=== PATIENT | female | born 1985 | race Caucasian/White ===

== ENCOUNTER → 2017-03-18 | Day surgery (SDC) | payer BC ==
[2017-03-11 10:02] VITALS: Ht 160 cm; Wt 86.4 kg
[~2017-03-18] VITALS: Ht 160 cm; Wt 86.4 kg
[~2017-03-18] MED LIST: ALBU18002 INH; CETI10TA84 PO; LIDOCAINE HCL 2% 2 ML VIAL (20MG/ML) ONE; PROPOFOL IV EMULSION 10 MG/ML 20 ML VIAL IV ONE
--- NOTE | 2017-03-18 14:47 | Endo History and Physical ---
History & Physical Date of Service: Mar 18, 2017. Chief Complaint: Hoarseness Referring Physician: YASH Hall History of Present Illness 32 yo CF who presents for EGD secondary to hoarseness. Past Surgical History Hx Cardiac Surgery: No Hx Internal Defibrillator: No Hx Pacemaker: No Hx Abdominal Surgery: No Hx of Implantable Prosthesis: No Hx Post-Op Nausea and Vomiting: No Hx Cancer Surgery: No Hx Thoracic Surgery: No Hx Orthopedic: No Hx Urinary Tract Surgery: No Family History Colon CA Social History Smoking Status: Never Smoker Hx Substance Use: No Hx Alcohol Use: No Allergies Coded Allergies: Animal Dander (Verified Allergy, Unknown, ALLERGIES, 03/11/17) NO KNOWN DRUG ALLERGIES (Verified Allergy, Unknown, ., 03/11/17) Lactose Intolerance (Verified Adverse Reaction, Unknown, GI SYMPTOMS, ) Current Medications Reported Home Medications Medications Dose Route/Sig Max Daily Dose Days Date Category Proair Respiclick (Albuterol Sulfate) 108 Mcg/Act Aer 2 Puffs INH Q4 PRN 03/11/17 Reported Zyrtec (Cetirizine HCl) 10 Mg Tab 10 Mg PO HS 04/19/12 Reported Vital Signs Weight (Kilograms): 86.36 Height (Feet): 5 Height (Inches): 3 Physical Exam General Appearance: WD/WN, no apparent distress Respiratory/Chest: Auscultation: breath sounds normal Cardiovascular: Heart Auscultation: RRR Abdomen: Bowel Sounds: normal Inspection & Palpation: soft, non-distended, no tenderness, guarding & rebound Assessment and Plan Assessment: 32 yo CF who presents for EGD secondary to hoarseness. Plan: Proceed with EGD.
--- NOTE | 2017-03-18 16:05 | Discharge Instructions ---
Endoscopy Patient Instructions Date / Procedure(s) Performed Mar 18, 2017. EGD Allergy Information Coded Allergies: Animal Dander (Verified Allergy, Unknown, ALLERGIES, 03/11/17) NO KNOWN DRUG ALLERGIES (Verified Allergy, Unknown, ., 03/11/17) Lactose Intolerance (Verified Adverse Reaction, Unknown, GI SYMPTOMS, ) Discharge Date / Findings Mar 18, 2017. Hiatal hernia Medication Instructions 1) Start Omeprazole 20mg by mouth each morning 1/2 hour prior to breakfast. 2) OK to resume all medications today as prescribed Reported Home Medications Medications Dose Route/Sig Max Daily Dose Days Date Category Proair Respiclick (Albuterol Sulfate) 108 Mcg/Act Aer 2 Puffs INH Q4 PRN 03/11/17 Reported Zyrtec (Cetirizine HCl) 10 Mg Tab 10 Mg PO HS 04/19/12 Reported Provider Instructions Activity Restrictions - No exercising or heavy lifting for 24 hours. - Do not drink alcohol the day of the procedure. - Do not drive a car or operate machinery until the day after the procedure. - Do not make any important decisions or sign important papers in 24 hours after the procedure. Following Day: - Return to full activity which may include returning to work/school. Diet Start your diet with liquids and light foods (jello, soup, juice, toast). Then eat your usual diet if not nauseated. Treatment For Common After Affects For mild abdominal pain, bloating, or excessive gas: - Rest - Eat lightly - Lie on right side Follow-Up Information Follow-up with Rani Felix as scheduled Anesthesia Information What You Should Know You have had a procedure that required some medicine to reduce anxiety and discomfort. This treatment is called moderate sedation. After receiving the treatment, you may be sleepy, but you will be able to breathe on your own. The effects of the treatment may last for several hours. Follow these instructions along with Activity/Diet recommendations noted above: * Do NOT do anything where dizziness or clumsiness would be dangerous. * Rest quietly at home today, then you can be up and about tomorrow. * Have a responsible person stay with you the rest of today. * You may have had an I.V. today. If so, you may take the dressing off later today. Recommendations Call your doctor if: * Trouble breathing * Continuous vomiting for more than 24 hours * Temperature above 101 degrees * Severe abdominal pain or bloating * Pain not relieved by pain medicine ordered * There is increased drainage or redness from any incision * A large amount of rectal bleeding greater than 2-3 tablespoons. (If you had a polyp/s removed or have hemorrhoids, a small amount of blood - from the rectum is to be expected.) * You have any unanswered questions or concerns. IN THE EVENT OF A SERIOUS EMERGENCY, GO TO THE NEAREST EMERGENCY ROOM Your discharge instructions were prepared by provider Jagdish Chowdhury. Patient Instructions Signature Page Sybil Ny Patient (or Guardian) Signature/Date: I have read and understand the instructions given to me by my caregivers. Caregiver/RN/Doctor Signature/Date: The above-named patient and/or guardian has received patient instructions on this date. + Original Patient Signature Page (only) stays with chart. Please make copy for patient.
--- NOTE | 2017-03-18 16:10 | GI REPORT ---
Procedure Date: 03/18/2017 3:24 PM Procedure: Upper GI endoscopy Indications: Hoarseness Medicines: Monitored Anesthesia Care Complications: No immediate complications. Estimated Blood Loss: Estimated blood loss: none. Procedure: Pre-Anesthesia Assessment: - Prior to the procedure, a History and Physical was performed, and patient medications and allergies were reviewed. The patient's tolerance of previous anesthesia was also reviewed. The risks and benefits of the procedure and the sedation options and risks were discussed with the patient. All questions were answered, and informed consent was obtained. Prior Anticoagulants: The patient has taken no previous anticoagulant or antiplatelet agents. ASA Grade Assessment: II - A patient with mild systemic disease. After reviewing the risks and benefits, the patient was deemed in satisfactory condition to undergo the procedure. After obtaining informed consent, the endoscope was passed under direct vision. Throughout the procedure, the patient's blood pressure, pulse, and oxygen saturations were monitored continuously. The scope was introduced through the mouth, and advanced to the second part of duodenum. The upper GI endoscopy was accomplished without difficulty. The patient tolerated the procedure well. Findings: The esophagus was normal. A small hiatus hernia was present. The examined duodenum was normal. Impression: - Normal esophagus. - Small hiatus hernia. - Normal examined duodenum. - No specimens collected. Recommendation: - Resume previous diet. - Continue present medications. - Return to GI office as previously scheduled. Jagdish Chowdhury DO 03/18/2017 4:10:20 PM This report has been signed electronically. Note Initiated On: 03/18/2017 3:24 PM I attest to the content of the Intraoperative Record and orders documented therein, exceptions below
[2017-03-18 16:38] VITALS: BP 114/97; PULSE 86; O2SAT 98
--- NOTE | 2017-03-18 16:45 | Anesthesiology Progress Note ---
Anesthesia Post Op Note Date & Time Mar 18, 2017 at 16:45 Vital Signs Pain Intensity: 0 Vital Signs Past 12 Hours Date Time Temp Pulse Resp B/P (MAP) Pulse Ox O2 Delivery O2 Flow Rate FiO2 03/18/17 16:38 86 20 114/97 (103) 98 Room Air 03/18/17 16:23 92 20 130/94 (106) 98 Room Air 03/18/17 16:08 92 20 117/83 (94) 95 Room Air 03/18/17 14:51 36.8 80 20 125/89 (101) 97 Room Air Notes Mental Status: alert / awake / arousable, participated in evaluation Pt Amnestic to Procedure: Yes Nausea / Vomiting: adequately controlled Pain: adequately controlled Airway Patency, RR, SpO2: stable & adequate BP & HR: stable & adequate Hydration State: stable & adequate Anesthetic Complications: no major complications apparent
== END | disposition home or self-care (01) ==
LOC: C.GI 14:21
PROVIDERS: ATTEND Internal Medicine
DX: R49.0 Dysphonia (principal); K44.9 Diaphragmatic hernia without obstruction or gangrene; Z80.0 Family history of malignant neoplasm of digestive organs; Z79.899 Other long term (current) drug therapy

== ENCOUNTER → 2017-04-09 | Day surgery (SDC) | payer BC ==
[2017-03-11 10:08] VITALS: Ht 160 cm; Wt 86.4 kg
[~2017-04-09] VITALS: Ht 160 cm; Wt 86.4 kg
[~2017-04-09] MED LIST changes: -LIDOCAINE HCL 2% 2 ML VIAL (20MG/ML) ONE; +SODIUM CHLORIDE 0.9% 500ML 500 ML IV ONE
--- NOTE | 2017-04-09 11:16 | Endo History and Physical ---
History & Physical Date of Service: Apr 09, 2017. Chief Complaint: Diarrhea Referring Physician: Komal Felix NP History of Present Illness 32 yo CF who presents for colonoscopy secondary to diarrhea. Past Surgical History Hx Cardiac Surgery: No Hx Internal Defibrillator: No Hx Pacemaker: No Hx Abdominal Surgery: No Hx Post-Op Nausea and Vomiting: No Hx Cancer Surgery: No Hx Thoracic Surgery: No Hx Orthopedic: No Hx Urinary Tract Surgery: No Family History Colon CA Social History Smoking Status: Never Smoker Hx Substance Use: No Hx Alcohol Use: No Allergies Coded Allergies: Animal Dander (Verified Allergy, Unknown, ALLERGIES, 04/09/17) NO KNOWN DRUG ALLERGIES (Verified Allergy, Unknown, ., 04/09/17) Lactose Intolerance (Verified Adverse Reaction, Unknown, GI SYMPTOMS, ) Current Medications Reported Home Medications Medications Dose Route/Sig Max Daily Dose Days Date Category Proair Respiclick (Albuterol Sulfate) 108 Mcg/Act Aer 2 Puffs INH Q4 PRN 03/11/17 Reported Zyrtec (Cetirizine HCl) 10 Mg Tab 10 Mg PO HS 04/19/12 Reported Vital Signs Weight (Kilograms): 86.36 Height (Feet): 5 Height (Inches): 3 Date Time Temp Pulse Resp B/P (MAP) Pulse Ox O2 Delivery O2 Flow Rate FiO2 04/09/17 10:55 36.7 73 26 116/78 (91) 96 Room Air Physical Exam General Appearance: WD/WN, no apparent distress Respiratory/Chest: Auscultation: breath sounds normal Cardiovascular: Heart Auscultation: RRR Abdomen: Bowel Sounds: normal Inspection & Palpation: soft, non-distended, no tenderness, guarding & rebound Assessment and Plan Assessment: 32 yo CF who presents for colonoscopy secondary to diarrhea. Plan: Proceed with colonoscopy.
--- NOTE | 2017-04-09 11:50 | Discharge Instructions ---
Endoscopy Patient Instructions Date / Procedure(s) Performed Apr 09, 2017. Colonoscopy Allergy Information Coded Allergies: Animal Dander (Verified Allergy, Unknown, ALLERGIES, 04/09/17) NO KNOWN DRUG ALLERGIES (Verified Allergy, Unknown, ., 04/09/17) Lactose Intolerance (Verified Adverse Reaction, Unknown, GI SYMPTOMS, ) Discharge Date / Findings Apr 09, 2017. Internal hemorrhoids Random colon biopsies Stool aspirate collected Medication Instructions OK to resume all medications today as prescribed Reported Home Medications Medications Dose Route/Sig Max Daily Dose Days Date Category Proair Respiclick (Albuterol Sulfate) 108 Mcg/Act Aer 2 Puffs INH Q4 PRN 03/11/17 Reported Zyrtec (Cetirizine HCl) 10 Mg Tab 10 Mg PO HS 04/19/12 Reported Provider Instructions Activity Restrictions - No exercising or heavy lifting for 24 hours. - Do not drink alcohol the day of the procedure. - Do not drive a car or operate machinery until the day after the procedure. - Do not make any important decisions or sign important papers in 24 hours after the procedure. Following Day: - Return to full activity which may include returning to work/school. Diet Start your diet with liquids and light foods (jello, soup, juice, toast). Then eat your usual diet if not nauseated. Treatment For Common After Affects For mild abdominal pain, bloating, or excessive gas: - Rest - Eat lightly - Lie on right side Follow-Up Information Follow-up with Komal Felix [employer] TECHNICIAN as scheduled Anesthesia Information What You Should Know You have had a procedure that required some medicine to reduce anxiety and discomfort. This treatment is called moderate sedation. After receiving the treatment, you may be sleepy, but you will be able to breathe on your own. The effects of the treatment may last for several hours. Follow these instructions along with Activity/Diet recommendations noted above: * Do NOT do anything where dizziness or clumsiness would be dangerous. * Rest quietly at home today, then you can be up and about tomorrow. * Have a responsible person stay with you the rest of today. * You may have had an I.V. today. If so, you may take the dressing off later today. Recommendations Call your doctor if: * Trouble breathing * Continuous vomiting for more than 24 hours * Temperature above 101 degrees * Severe abdominal pain or bloating * Pain not relieved by pain medicine ordered * There is increased drainage or redness from any incision * A large amount of rectal bleeding greater than 2-3 tablespoons. (If you had a polyp/s removed or have hemorrhoids, a small amount of blood - from the rectum is to be expected.) * You have any unanswered questions or concerns. IN THE EVENT OF A SERIOUS EMERGENCY, GO TO THE NEAREST EMERGENCY ROOM Your discharge instructions were prepared by provider Jagdish Chowdhury. Patient Instructions Signature Page Sybil Ny Patient (or Guardian) Signature/Date: I have read and understand the instructions given to me by my caregivers. Caregiver/RN/Doctor Signature/Date: The above-named patient and/or guardian has received patient instructions on this date. + Original Patient Signature Page (only) stays with chart. Please make copy for patient.
--- NOTE | 2017-04-09 11:53 | GI REPORT ---
Procedure Date: 04/09/2017 11:03 AM Procedure: Colonoscopy Indications: Chronic diarrhea Medicines: Monitored Anesthesia Care Complications: No immediate complications. Estimated Blood Loss: Estimated blood loss: none. Procedure: Pre-Anesthesia Assessment: - Prior to the procedure, a History and Physical was performed, and patient medications and allergies were reviewed. The patient's tolerance of previous anesthesia was also reviewed. The risks and benefits of the procedure and the sedation options and risks were discussed with the patient. All questions were answered, and informed consent was obtained. Prior Anticoagulants: The patient has taken no previous anticoagulant or antiplatelet agents. ASA Grade Assessment: II - A patient with mild systemic disease. After reviewing the risks and benefits, the patient was deemed in satisfactory condition to undergo the procedure. After I obtained informed consent, the scope was passed under direct vision. Throughout the procedure, the patient's blood pressure, pulse, and oxygen saturations were monitored continuously. The On-site loaner was introduced through the anus and advanced to the terminal ileum. The colonoscopy was performed without difficulty. The patient tolerated the procedure well. The quality of the bowel preparation was good. The terminal ileum, ileocecal valve, appendiceal orifice, and rectum were photographed. Findings: The colon (entire examined portion) appeared normal. Several random biopsies were obtained with cold forceps for histology in the entire colon. Fluid aspiration for cytology was performed. Non-bleeding internal hemorrhoids were found during retroflexion. The hemorrhoids were small. Impression: - The entire examined colon is normal. Fluid aspiration performed. - Non-bleeding internal hemorrhoids. - Several random biopsies were obtained in the entire colon. Recommendation: - Resume previous diet. - Continue present medications. - Repeat colonoscopy for surveillance based on pathology results. - Return to primary care physician as previously scheduled. Jagdish Chowdhury DO 04/09/2017 11:52:51 AM This report has been signed electronically. Note Initiated On: 04/09/2017 11:03 AM I attest to the content of the Intraoperative Record and orders documented therein, exceptions below
[2017-04-09 12:07] VITALS: BP 123/96; PULSE 79; O2SAT 99
--- NOTE | 2017-04-09 13:10 | Anesthesiology Progress Note ---
Anesthesia Post Op Note Date & Time Apr 09, 2017 at 13:09 Vital Signs Pain Intensity: 0 Vital Signs Past 12 Hours Date Time Temp Pulse Resp B/P (MAP) Pulse Ox O2 Delivery O2 Flow Rate FiO2 04/09/17 12:07 79 16 123/96 (105) 99 Room Air 04/09/17 11:52 83 16 127/93 (104) 99 Room Air 04/09/17 11:37 97 16 115/86 (96) 98 Room Air 04/09/17 10:55 36.7 73 26 116/78 (91) 96 Room Air Notes Mental Status: alert / awake / arousable, participated in evaluation Pt Amnestic to Procedure: Yes Nausea / Vomiting: adequately controlled Pain: adequately controlled Airway Patency, RR, SpO2: stable & adequate BP & HR: stable & adequate Hydration State: stable & adequate Anesthetic Complications: no major complications apparent
== END | disposition home or self-care (01) ==
LOC: C.GI 10:27
PROVIDERS: ATTEND Internal Medicine
DX: K52.9 Noninfective gastroenteritis and colitis, unspecified (principal); K64.8 Other hemorrhoids; Z80.0 Family history of malignant neoplasm of digestive organs; Z79.899 Other long term (current) drug therapy

== ENCOUNTER → 2017-04-26 | Outpatient (CLI) | payer BC ==
[~2017-04-26] MED LIST changes: -PROPOFOL IV EMULSION 10 MG/ML 20 ML VIAL IV ONE; -SODIUM CHLORIDE 0.9% 500ML 500 ML IV ONE
[2017-04-26 16:04] LABS: BASO % 0.6 %; BASO ABS # 0.04 K/uL (0-0.2); COMPLETE YES; EOS % 0.7 %; HEMATOCRIT 43.8 % (37-47); IG% 0.3 %; LYMPH % 35.1 %; LYMPH ABS # 2.42 K/uL (1.2-3.4); MEAN CELL VOLUME 92.4 fL (80-100); MEAN CORPUSCULAR HEMOGLOBIN 32.1 pg (25-34); MEAN CORPUSCULAR HGB CONC 34.7 g/dl (32-36); MEAN PLATELET VOLUME 10.9 fL (7.4-10.4); MONO % 7.5 %; NEUT % 55.8 %; PLATELET COUNT 291 K/uL (130-400); RED BLOOD COUNT 4.74 M/uL (4.2-5.4); WHITE BLOOD COUNT 6.89 K/uL (4.8-10.8)
[2017-04-26 16:11] LABS: ALT/SGPT 44 U/L (12-78); AST/SGOT 18 U/L (15-37); BLOOD UREA NITROGEN 14 mg/dl (7-18); BUN/CREATININE RATIO 18.3 (10-20); CALCIUM 9.4 mg/dl (8.5-10.1); CARBON DIOXIDE 27 mmol/L (21-32); CHLORIDE 105 mmol/L (98-107); CREATININE 0.77 mg/dl (0.60-1.20); GLUCOSE 102 mg/dl (70-99); POTASSIUM 3.8 mmol/L (3.5-5.1); SODIUM 139 mmol/L (136-145)
[2017-04-26 16:22] LABS: ALB/GLOB RATIO 1.2 (0.9-2); ALKALINE PHOSPHATASE 89 U/L (45-117); C-REACTIVE PROTEIN < 0.29 mg/dl (0-0.29)
[2017-04-30 02:36] LABS: IGA SERUM 211 mg/dL (81-463); TIS TRANS IGA 1 U/mL (<4)
== END | disposition home or self-care (01) ==
LOC: C.LAB1850 14:59
PROVIDERS: ATTEND Nurse Practitioner Adult Health
DX: K52.9 Noninfective gastroenteritis and colitis, unspecified (principal); E01.0 Iodine-deficiency related diffuse (endemic) goiter

== ENCOUNTER → 2017-05-06 | Outpatient (CLI) | payer BC | END | disposition home or self-care (01) | LOC: C.PAPS 13:55 | PROVIDERS: ATTEND Physician Assistant | DX: Z01.419 Encounter for gynecological examination (general) (routine) without abnormal findings (principal) ==

== ENCOUNTER → 2017-06-22 | Outpatient (CLI) | payer BC ==
--- NOTE | 2017-06-22 19:16 | DIAGNOSTIC IMAGING REPORT ---
R LOWER EXT JOINT WITHOUT CLINICAL HISTORY: 32 years-old Female presenting with BILATERAL ANKLE, POSTERIOR TIBIAL TENDONITIS. TECHNIQUE: Multisequence, multiplanar MR imaging of the right and ankle was performed without the use of intravenous contrast. IV contrast: None. COMPARISON: None. FINDINGS: Localizer images: Unremarkable. No bony marrow edema. Subcutaneous edema noted along the medial distal tibia and inferior to the medial malleolus and to a lesser extent along the posterior lateral distal lower leg. Anterior tendons including the tibialis anterior, extensor hallucis longus, and extensor digitorum longus intact. Posterior tendons demonstrate minimal fluid along the tibialis posterior with normal signal intensity of the tendon. Edema noted both superficial and deep to the flexor retinaculum. Flexor digitorum longus and flexor hallucis longus intact. Peroneal longus and brevis intact, although minimal superficial subcutaneous edema tracks along the posterior lateral aspect of the tendon complex in the distal lower leg. Anterior and posterior tibiofibular ligaments intact. Anterior and posterior talofibular ligaments intact. Deltoid ligament intact. Normal bulk and signal intensity of the muscles. IMPRESSION: 1. Edema superficial and deep to the flexor retinaculum with minimal fluid tracking along the tibialis posterior. Mild posterior tibial tendinitis. 2. Mild subcutaneous edema tracks along the peroneal is tendon complex proximal to the ankle mortise. Electronically signed by: Sonny Bull M.D. 06/22/2017 7:15 PM Dictated Date/Time: 06/22/2017 7:02 PM
--- NOTE | 2017-06-22 20:03 | DIAGNOSTIC IMAGING REPORT ---
L LOWER EXT JOINT WITHOUT CLINICAL HISTORY: 32 years-old Female presenting with BILATERAL ANKLE, POSTERIOR TIBIAL TENDONITIS. TECHNIQUE: Multisequence, multiplanar MR imaging of the left ankle was performed without the use of intravenous contrast. IV contrast: None. COMPARISON: None. FINDINGS: Localizer images: Unremarkable. No bony edema. Subcutaneous edema noted along the posterior lateral lower leg to the level of the ankle mortise. Subcutaneous edema also noted professional to the posterior ankle tendons primarily in the lower leg extending minimally beyond the ankle mortise. Anterior tendons including the tibialis anterior, extensor hallucis longus, and extensor digitorum longus intact. Minimal superficial edema noted along the proximal course. Posterior tendons demonstrate minimal fluid tracking along the tibialis posterior at the level of the overlying subcutaneous edema. Edema noted superficial and deep to the flexor retinaculum, which appears intact. Remaining posterior tendons including the flexor digitorum longus and flexor hallucis longus intact. Peroneal longus and brevis intact, although subcutaneous edema noted superficial to these tendons in the distal lower leg. Anterior and posterior tibiofibular ligaments intact. Anterior and posterior talofibular ligaments intact. Deltoid ligament intact. Achilles tendon normal. Medial and lateral bands of the plantar fascia normal. Normal muscle bulk and signal intensity. IMPRESSION: 1. Edema noted superficial and deep to the flexor retinaculum primarily centered in the subcutaneous tissue, although minimal fluid tracks along the tibialis posterior. This is identical to the appearance in the right ankle and could suggest mild tendinitis of the tibialis posterior. 2. Nonspecific mild edema superficial to the peroneal complex proximal to the ankle mortise. Electronically signed by: Sonny Bull M.D. 06/22/2017 8:01 PM Dictated Date/Time: 06/22/2017 7:54 PM
== END | disposition home or self-care (01) ==
LOC: C.MRI 16:57
PROVIDERS: ATTEND Podiatrist
DX: M76.822 Posterior tibial tendinitis, left leg (principal); G57.52 Tarsal tunnel syndrome, left lower limb; M76.821 Posterior tibial tendinitis, right leg; G57.51 Tarsal tunnel syndrome, right lower limb

== ENCOUNTER → 2017-08-30 | Outpatient (CLI) | payer OTHER ==
--- NOTE | 2017-08-30 15:07 | DIAGNOSTIC IMAGING REPORT ---
FUSION CT SINUSES W/O HISTORY: 32 years-old Female J32.9 Chronic sinusitis acute facial pain and pressure COMPARISON: None available TECHNIQUE: Multiple axial CT images of the paranasal sinuses were obtained without the use of IV contrast. RuffWire images also submitted. A dose lowering technique was used consistent with the principals of [place]ERSON. FINDINGS: The mastoid air cells and middle ear cavities are clear. The right maxillary sinus is clear. Area of polypoid mucosal thickening involving the anterior wall of the inferior left maxillary antrum measures up to 1.1 cm. Sphenoid sinuses are clear. Right ethmoid air cells are generally clear. There is moderate mucosal thickening involving anterior left ethmoid air cells. The right frontal sinus is clear. There is moderate mucoperiosteal thickening of the left frontal sinus. The right ostiomeatal unit is patent with only minimal mucosal thickening present. There is moderate to severe mucosal thickening with partial opacification of the left maxillary ostiomeatal unit with adjacent small left-sided Steve cell nicely seen on image 27 series 300. The right frontoethmoidal recess is patent. There is opacification and occlusion of the left frontoethmoidal recess. The bilateral sphenoethmoidal recesses are patent with minimal mucosal thickening seen on the left. Xena cheikh appears normal. The nasal septum is mildly deviated to the left with leftward spurring. No facial bone fracture or dislocation. Imaged cervical spine appears unremarkable. Soft tissues are within normal limits. No pathologic adenopathy identified. The imaged intracranial structures demonstrate no acute abnormality. IMPRESSION: 1. Paranasal sinus disease as above includes occlusion of the left frontoethmoidal recess along with partial occlusion of the left maxillary ostiomeatal unit which is narrowed by a left-sided Steve cell. 2. Mild leftward bowing and spurring of the nasal septum. The above report was generated using voice recognition software. It may contain grammatical, syntax or spelling errors. Electronically signed by: Darvin Salinas M.D. 08/30/2017 3:06 PM Dictated Date/Time: 08/30/2017 2:59 PM
== END | disposition home or self-care (01) ==
LOC: C.CTS 14:40
DX: J32.9 Chronic sinusitis, unspecified (principal)

== ENCOUNTER → 2018-03-17 | Outpatient (CLI) | payer OTHER | END | disposition home or self-care (01) | LOC: C.LAB1850 14:32 | PROVIDERS: ATTEND Obstetrics & Gynecology | DX: N91.2 Amenorrhea, unspecified (principal) ==

== ENCOUNTER 2019-03-03 05:36 | Inpatient (IN) ==
[2019-03-03] MEDS ORDERED: PENICILLIN G POTASSIUM 6 MU in DEXTROSE 5% 250 ML IV STA (06:27)
[2019-03-03] MEDS ORDERED: OXYTOCIN 30 UNITS/500 ML BAG IV PRN ×3 (06:27→21:47)
[2019-03-03 06:48] LABS: Hematocrit (blood only) 34.9 % (37-47); Hemoglobin 11.7 g/dL (12.0-16.0); Mean Corpuscular Volume 84.9 fL (80-100); Mean Platelet Volume 10.7 fL (7.4-10.4); Platelet Count 196 K/uL (130-400); RDW Coefficient of Variation 14.2 % (11.5-14.5); RDW Standard Deviation 43.8 fL (36.4-46.3); Red Blood Count 4.11 M/uL (4.2-5.4); White Blood Count 8.64 K/uL (4.8-10.8)
[2019-03-03 06:55] LABS: Mean Corpuscular Hgb Conc 33.5 g/dL (32-36)
[2019-03-03] MEDS: LACTATED RINGER'S 1,000 ML IV PRN ×2 (07:01→14:48)
[2019-03-03] MEDS ORDERED: miSOPROStol 25 MCG TAB ONE (07:54)
[2019-03-03] MEDS ORDERED: miSOPROStol 25 MCG TAB PO SCH (09:00)
[2019-03-03] MEDS: PENICILLIN G POTASSIUM 3 MU in DEXTROSE 5% 100 ML IV PRN ×3 (11:06→19:02)
--- NOTE | 2019-03-03 13:03 | History & Physical Report ---
Date of Service March 03, 2019 Assessment & Plan (1) : 34 year old at 39 weeks 5 days, complicated by AMA, Asthma, and GBS carrier. - GBS+, Blood Type A+ - monitor: Cat. I tracing - [place]: q4 - continue to augment with Oxytocin, increasing hourly and checking for cervical change - Pain well controlled, will consider epidural if pain worsening History of Present Illness Primary Care Provider: YASH Stephenson 34 year old at 39 weeks 5 days, complicated by AMA, Asthma, complex ovarian cyst (L reduced @20wks), and GBS carrier. Patient had NST's weekly starting at 36-5. PROM at 4 AM with contractions starting at 530 AM (03/03/2019). Cytotec started initially followed by Pitocin, contractions are more more consistent and increased in intensity. Medical Hx. Asthma (patient states triggers include animals) status - well controlled Surgical Hx. none Home Medications: , Iron, Zyrtec, Cytotec, and Colace PRN Allergies: Dander, Seasonal, Peanut, and sesame seeds Allergies Allergy/AdvReac Type Severity Reaction Status Date / Time animal dander Allergy Unknown ALLERGIES Verified 03/03/19 07:05 peanut Allergy Gastrointestinal Verified 03/03/19 07:05 Upset sesame seed Allergy Swelling Verified 03/03/19 07:06 of Lip/Tongue/Throat lactose AdvReac Unknown GI SYMPTOMS Verified 03/03/19 07:05 Home Medications Home Medications Medication Instructions Recorded Confirmed Type PNV cmb#95-ferrous fumarate-FA 1 tab PO DAILY 03/03/19 03/03/19 History [] calcium carbonate [Calcium 500] 500 mg PO DAILY 03/03/19 03/03/19 History cetirizine [Zyrtec] 10 mg PO DAILY 03/03/19 03/03/19 History Patient History Medical History Asthma allergy induced Enlarged thyroid Hiatal hernia History of IBS Seasonal allergies Social History Preferred Language: Zimbabwean Communication Ability: Effective Beliefs That Will Affect Care: None marital status: Current Living Situation: Spouse Feels Safe at Home: Yes Safety Concerns: Feels Safe At This Time Smoking Status: Never smoker Do You Dip or Chew Tobacco: No Second Hand Exposure: No Tobacco Cessation Education Requested by Patient: No Hx Alcohol Use: No Hx Substance Use: No OB History @ 39 wks +5 days Review of Systems Denies fever, chills, sweats Denies shortness of breath, difficulty breathing, chest pain, palpitations, chest pressure. Denies dysuria. Denies headache. Physical Exam Physical Exam: General: Alert, oriented. No acute distress. Cardiac: Regular rate and rhythm, no murmurs/rubs/gallops. Respiratory: Clear to auscultation anterior and posteriorly, no wheezes/rales/rhonchi. No increased work of breathing. Symmetrical chest rise. No respiratory distress. Abdomen: Gravid Lower Extremities: No lower extremity edema or swelling. No deep calf pain. Yue's negative bilaterally. Results & Data Vital Signs (Past 12 Hours) Vital Signs Temp Pulse Resp BP 03/03/19 11:06 78 109/71 03/03/19 11:05 36.8 C 20 03/03/19 09:00 36.9 C 03/03/19 07:10 86 108/67 03/03/19 07:00 36.8 C 16 03/03/19 05:52 36.4 C L 95 H 18 134/81 03/03/19 05:48 95 H 134/81 03/03/19 05:45 36.4 C L 18 Code Status & VTE Plan VTE Prophylaxis Plan Reason for no VTE mechanical prophylaxis: Treatment not indicated Monitoring External Monitor Category I strip: rate 140, moderate variability, >2 accelerations in 10 minutes, no decelerations seen. Tocodynamometer Inconsistent contractions becoming more frequent and regular after starting Pitocin.
[2019-03-03] MEDS ORDERED: fentaNYL citrate 100 MCG/2 ML VIAL ONE (13:59)
[2019-03-03] MEDS ORDERED: ePHEDrine sulfate 50 MG/ML AMP ONE (13:59)
[2019-03-03] MEDS ORDERED: BUPIVACAINE 0.25% 30 ML VIAL ONE (13:59)
[2019-03-03] MEDS ORDERED: fentaNYL 2MCG/ML ROPIV 1.25MG/ML 100 ML BAG EPI ONE (14:00)
--- NOTE | 2019-03-03 14:32 | Obstetrical Progress Note ---
Date of Service March 03, 2019 Subjective Patient feels contractions are getting stronger. Physical Exam Physical Exam: monitoring: Cat I tracing with rate of 130, moderate variability, >2 accelerations in 10 minutes and no decelerations. [place]: contractions Q3 minutes Results & Data Vital Signs (Past 12 Hours) Vital Signs Temp Pulse Resp BP Pulse Ox 03/03/19 14:24 93 H 97 03/03/19 14:19 89 98 03/03/19 14:14 89 98 03/03/19 14:09 94 H 138/94 97 03/03/19 13:06 85 114/78 03/03/19 13:00 36.9 C 18 03/03/19 11:06 78 109/71 03/03/19 11:05 36.8 C 20 03/03/19 09:00 36.9 C 03/03/19 07:10 86 108/67 03/03/19 07:00 36.8 C 16 03/03/19 05:52 36.4 C L 95 H 18 134/81 03/03/19 05:48 95 H 134/81 03/03/19 05:45 36.4 C L 18 PG Care Time/CCT Total # of Minutes Spent Total Time Spent with Patient: Total time spent is greater than 50% in coordination of care (as documented) at patient's floor/unit and/or counseling patient:
--- NOTE | 2019-03-03 14:44 | Anesthesiology Consultation ---
Date of Service March 03, 2019 Assessment & Plan (1) Encounter for pre-operative examination: Chart Review Chart Review: Patient NOT seen in Pre Admission Testing and Acceptable Risk for Labor Epidural Consults Requested none Proposed Anesthesia Anesthesia Type: Labor Epidural Risk / Benefits Reviewed With: PT / POA / Parent / Guardian, Accepts Plan and Informed Consent Obtained History Height/Weight Height: 5 ft 4 in Weight: 96.162 kg Allergies Allergy/AdvReac Type Severity Reaction Status Date / Time animal dander Allergy Unknown ALLERGIES Verified 03/03/19 07:05 peanut Allergy Gastrointestinal Verified 03/03/19 07:05 Upset sesame seed Allergy Swelling Verified 03/03/19 07:06 of Lip/Tongue/Throat lactose AdvReac Unknown GI SYMPTOMS Verified 03/03/19 07:05 Medications Home Medications Medication Instructions Recorded Confirmed Last Taken PNV cmb#95-ferrous fumarate-FA 1 tab PO DAILY 03/03/19 03/03/19 03/02/19 08:00 [] calcium carbonate [Calcium 500] 500 mg PO DAILY 03/03/19 03/03/19 03/02/19 08:00 cetirizine [Zyrtec] 10 mg PO DAILY 03/03/19 03/03/19 03/02/19 20:30 Active Medications Generic Name Dose Route Start Last Admin Trade Name Freq PRN Reason Stop Dose Admin Lactated Ringer's 1,000 mls @ 125 mls/hr 03/03/19 06:27 03/03/19 13:55 Lr IV 03/05/19 06:26 999 mls/hr .Q8H PRN Infusion L&D Protocol Protocol Penicillin G Potassium 3 mu/ 106 mls @ 100 mls/hr 03/03/19 06:27 03/03/19 12:10 Dextrose IV 03/13/19 06:26 Infused Q4H PRN Infusion Give until delivery Oxytocin 30 units in 500 mls @ 3 mls/hr 03/03/19 12:28 03/03/19 13:55 Pitocin IV 03/05/19 12:27 0.18 units/hr .Q24H PRN 3 mls/hr Labor Induction/Augmentation Titration Protocol 0.18 UNITS/HR Misoprostol 25 mcg 03/03/19 09:00 03/03/19 08:25 Cytotec PO 04/02/19 08:59 Not Given BID YOLANDA NPO Date Last Intake of Fluids: 03/03/19 Time Last Intake of Fluids: 14:42 Date Last Intake of Solids: 03/03/19 Time Last Intake of Solids: 12:00 Past Medical History Medical History Asthma allergy induced Enlarged thyroid Hiatal hernia History of IBS Seasonal allergies Exercise / Class Metabolic Activity II 4-5 Yardwork/Stairs/Walk up hill Negative for chest pain or shortness of breath. Patient denies active symptoms of GERD. Patient denies history of abnormal bleeding or bleeding disorder. Patient denies active use of anticoagulants other than low dose aspirin. Patient denies numbness, tingling or weakness in lower extremities. Past Anesthesia History No Family Hx of Anesthesia Complications History of PONV No Hx of Motion Sickness Social History Smoking Status: Never smoker Do You Dip or Chew Tobacco: No Hx Alcohol Use: No Hx Substance Use: No substance use type: does not use Physical Exam Vital Signs Last Vital Signs Temp 36.9 C 03/03/19 13:00 Pulse 87 03/03/19 14:39 Resp 18 03/03/19 13:00 BP 138/94 03/03/19 14:09 Pulse Ox 99 03/03/19 14:39 Constitutional not obese (Gravid uterus) ENMT Mouth: no TMJ abnormality and oral opening not small Thyromental Distance: > or= 3.5 Finger Breadths Mallampati Class: II Neck normal visual inspection; neck extension not limited Respiratory normal respiratory effort Auscultation: lungs clear to auscultation bilaterally Cardiovascular Rate/Rhythm: regular rate and regular rhythm Heart Sounds: no murmur Neurologic moves all extremities Motor/Sensory: no sensory deficit Psychiatric Orientation: alert and oriented x 3 Testing Laboratory Results 03/03/19 06:36
[2019-03-03] MEDS ORDERED: DiphenhydrAMINE HCL 50 MG/ML VIAL IV PRN (15:13)
[2019-03-03] MEDS ORDERED: NALOXONE HCL 1 MG in SODIUM CHLORIDE 0.9% 1000ML 1,000 ML IV PRN (15:13)
[2019-03-03] MEDS ORDERED: ePHEDrine sulfate 50 MG/ML AMP IV PRN (15:13)
[2019-03-03] MEDS ORDERED: fentaNYL 2MCG/ML ROPIV 1.25MG/ML 100 ML BAG EPI PRN (15:13)
[2019-03-03] MEDS ORDERED: NALBUPHINE HCL INJ 10 MG/ML AMP IV PRN (15:13)
[2019-03-03] MEDS ORDERED: NALOXONE HCL 0.4 MG/1 ML VIAL/CARP IV PRN (15:13)
[2019-03-03] MEDS ORDERED: ONDANSETRON INJ 2 MG/ML 2 ML VIAL ONE (17:33)
[2019-03-03] MEDS: ONDANSETRON INJ 2 MG/ML 2 ML VIAL IV PRN ×2 (17:35→21:01)
[2019-03-03] MEDS ORDERED: ONDANSETRON INJ 2 MG/ML 2 ML VIAL IV PRN (20:20)
--- NOTE | 2019-03-03 21:29 | Delivery Summary ---
Vaginal Delivery Summary Date of Service March 03, 2019 Patient arrived with rupture of membranes for Dr. 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
[2019-03-03] MEDS ORDERED: DIPHTHERIA/TETANUS/PERTUSSIS 0.5 ML SYR/VIAL IM ONE (21:47)
[2019-03-03] MEDS ORDERED: ACETAMINOPHEN 325 MG TAB PO PRN (21:47)
[2019-03-03] MEDS ORDERED: HYDROCORTISONE ACETATE 25 MG SUPP PR PRN (21:47)
[2019-03-03] MEDS ORDERED: BISACODYL 10 MG SUPP PR PRN (21:47)
[2019-03-03] MEDS ORDERED: BENZOCAINE 20% AER SPR 82.5 GM CAN EXT PRN (21:47)
[2019-03-03] MEDS ORDERED: SUPERCREAM 0.870% 15 GM JAR EXT PRN (21:47)
[2019-03-03 22:01] LABS: Base Excess Cord Venous Blood -4.2 mEq/L (-7.7-1.9); Cord Venous Blood HCO3 21 mmol/L (18.4-26.8); Cord Venous Blood PCO2 39 mmHg (30.4-57.2); Cord Venous Blood PO2 30 mmHg (14.1-43.3); Cord Venous Blood pH 7.35 (7.20-7.44)
[2019-03-03 22:11] LABS: Base Excess Cord Arterial Bld -3.7 mEq/L (-9-1.8); CO2 Cord Arterial Blood 49 mmHg (39.1-73.5); HCO3 Cord Arterial Blood 23 mmol/L (19.7-28.5); Oxygen Sat Cord Arterial Blood < 60.0 % (<60)
--- NOTE | 2019-03-03 23:09 | Anesthesia Procedure Note ---
Date of Service March 03, 2019 Anesthesia Post Epidural Note Vital Signs Vital Signs: Temp Pulse Resp BP Pulse Ox 36.5 C 118 H 18 153/69 H 90 03/03/19 22:43 03/03/19 22:56 03/03/19 22:56 03/03/19 22:56 03/03/19 21:29 Pain Intensity Right Hip: Pain Intensity: 0 Notes Mental Status: alert / awake / arousable and participated in evaluation Nausea / Vomiting: adequately controlled Pain: adequately controlled Airway Patency, RR, SpO2: stable & adequate BP & HR: stable & adequate Hydration State: stable & adequate Neuraxial Anesthesia: was administered and sensory block is resolving Anesthetic Complications: no major complications apparent and Pt Satisfied with anesthetic care Epidural: Removed without complications and With tip intact Notes: Epidural site clean, dry and intact. No signs of edema, erythema or bruising at insertion site. Pt instructed to request anesthesia if she has residual lower extremity numbness or if she develops lower extremity pain or weakness, back pain or headache.
[2019-03-03] MEDS: IBUPROFEN 600 MG TAB PO PRN (23:38)
[2019-03-04] MEDS: IBUPROFEN 600 MG TAB PO PRN ×3 (05:01→19:39)
--- NOTE | 2019-03-04 05:13 | Obstetrical Progress Note ---
Date of Service <James Oviedo MD - Last Filed: 03/04/19 07:55> March 04, 2019 Assessment & Plan <James Oviedo MD - Last Filed: 03/04/19 07:55> (1) : 34 year old s/p vaginal delivery @ 39 weeks 5 days, complicated by AMA, Asthma, and GBS carrier. - GBS+ (given Pen. G), Blood Type A+ - Feels well today. Eating well, voiding well, ambulating well. - Pain well controlled. - Routine care - After discharge will have 6 week followup with Billy. Subjective <James Oviedo MD - Last Filed: 03/04/19 07:55> Ambulation: ambulating normally Voiding: no voiding problems Passing Gas:: No Diet Tolerance:: regular diet Lochia:: Moderate (more than a heavy period) Feeding Type:: breast feeding (latching well) Current Pain Level(1-10): 3 Physical Exam <James Oviedo MD - Last Filed: 03/04/19 07:55> OB PE General: Alert, oriented. No acute distress. Cardiac: Regular rate and rhythm, no murmurs/rubs/gallops. Respiratory: Clear to auscultation anterior and posteriorly, no wheezes/rales/rhonchi. No increased work of breathing. Symmetrical chest rise. No respiratory distress. Abdomen: Soft, nontender, nondistended. Bowel sounds present. Uterus: Uterine fundus firm, at the umbilicus. Lower Extremities: No lower extremity edema or swelling. No deep calf pain. Yue's negative bilaterally. OB ROS Denies fever, chills, sweats Denies shortness of breath, difficulty breathing, chest pain, palpitations, chest pressure. Denies breast pain. Denies dysuria. Denies headache. Results & Data <James Oviedo MD - Last Filed: 03/04/19 07:55> Vital Signs (Past 12 Hours) Vital Signs Temp Pulse Resp BP Pulse Ox 03/04/19 00:10 115 H 18 116/67 03/03/19 23:55 129 H 114/66 03/03/19 23:40 122 H 18 107/63 03/03/19 23:25 120 H 115/65 03/03/19 23:11 127 H 118/77 03/03/19 22:56 118 H 18 153/69 H 03/03/19 22:43 36.5 C 118 H 18 133/68 03/03/19 22:10 116 H 20 122/63 03/03/19 21:55 116 H 20 116/78 03/03/19 21:40 121 H 18 113/68 03/03/19 21:29 122 H 90 03/03/19 21:25 37.1 C 120 H 20 128/65 03/03/19 21:24 121 H 94 03/03/19 21:19 127 H 81 L 03/03/19 21:16 137 H 128/67 03/03/19 21:14 155 H 75 L 03/03/19 21:10 143 H 83 L 03/03/19 21:09 142 H 91 03/03/19 21:04 148 H 93 03/03/19 21:02 130 H 119/81 03/03/19 20:59 130 H 97 03/03/19 20:58 139 H 83 L 03/03/19 20:54 111 H 94 03/03/19 20:49 142 H 92 03/03/19 20:47 129 H 154/78 H 03/03/19 20:45 20 03/03/19 20:44 134 H 86 L 03/03/19 20:39 128 H 96 03/03/19 20:34 130 H 94 03/03/19 20:31 130 H 135/62 03/03/19 20:29 136 H 98 03/03/19 20:24 127 H 98 03/03/19 20:19 115 H 97 03/03/19 20:17 117 H 129/73 03/03/19 20:14 100 H 97 03/03/19 20:09 108 H 97 03/03/19 20:04 113 H 98 03/03/19 20:01 108 H 149/74 H 03/03/19 20:00 20 03/03/19 19:59 103 H 97 03/03/19 19:54 90 98 03/03/19 19:49 88 97 03/03/19 19:47 93 H 105/58 L 03/03/19 19:44 98 H 96 03/03/19 19:39 88 97 03/03/19 19:34 99 H 95 03/03/19 19:31 90 123/73 03/03/19 19:29 98 H 95 03/03/19 19:24 93 H 96 03/03/19 19:19 94 H 95 03/03/19 19:16 93 H 115/73 03/03/19 19:14 89 96 03/03/19 19:09 90 95 03/03/19 19:04 89 96 03/03/19 19:01 86 116/69 03/03/19 19:00 37.1 C 20 03/03/19 18:59 96 H 96 03/03/19 18:54 92 H 96 03/03/19 18:49 96 H 95 03/03/19 18:46 86 113/70 03/03/19 18:44 98 H 96 03/03/19 18:39 83 96 03/03/19 18:34 90 97 03/03/19 18:32 84 102/62 03/03/19 18:30 20 03/03/19 18:29 85 96 03/03/19 18:24 90 96 03/03/19 18:19 83 96 03/03/19 18:17 80 101/59 L 03/03/19 18:16 88 94 03/03/19 18:14 85 95 03/03/19 18:09 82 96 03/03/19 18:04 85 96 03/03/19 18:02 83 107/61 03/03/19 18:00 20 03/03/19 17:59 93 H 96 03/03/19 17:58 103 H 94 03/03/19 17:54 98 H 95 03/03/19 17:51 83 94 03/03/19 17:49 93 H 95 03/03/19 17:47 83 107/62 03/03/19 17:44 86 95 03/03/19 17:39 89 96 03/03/19 17:34 93 H 96 03/03/19 17:31 87 114/62 03/03/19 17:30 20 03/03/19 17:29 90 97 03/03/19 17:24 103 H 97 03/03/19 17:19 86 95 03/03/19 17:17 88 126/78 03/03/19 17:14 89 97 <Ernestine Cervantes MD, FACOG - Last Filed: 03/04/19 08:07> Co-Signing Physician Notes Resident Physician Supervision Note: I was present with [Name of resident] during the history and exam. I discussed the case with the resident and agree with the findings and plan as documented in the note. Any exceptions or clarifications are listed here: [None] Documented By: Ernestine Cervantes MD, FACOG
[2019-03-04 06:54] LABS: Hematocrit (blood only) 31.1 % (37-47); Hemoglobin 10.4 g/dL (12.0-16.0); Mean Corpuscular Hgb Conc 33.4 g/dL (32-36); Mean Corpuscular Volume 85.4 fL (80-100); Platelet Count 181 K/uL (130-400); RDW Coefficient of Variation 14.4 % (11.5-14.5); RDW Standard Deviation 44.4 fL (36.4-46.3); Red Blood Count 3.64 M/uL (4.2-5.4); White Blood Count 13.08 K/uL (4.8-10.8)
[2019-03-04] MEDS: DOCUSATE SODIUM 100 MG CAP PO SCH ×2 (08:06→20:09)
[2019-03-04] MEDS: CETIRIZINE HCL 10 MG TABLET PO SCH (08:06)
[2019-03-04] MEDS: PRENATAL VITAMIN 1 TAB PO SCH (08:06)
[2019-03-04] MEDS: CALCIUM CARBONATE 1250MG TAB PO SCH (08:06)
[2019-03-04] MEDS ORDERED: NON-FORMULARY MEDICATION (Pnv Cmb#95-Ferrous Fumarate-Fa [Prenatal] 1 TAB) PO SCH (09:00)
[2019-03-04] MEDS: OXYCODONE/ACETAMINOPHEN 5mg/325mg TAB PO PRN (13:48)
[2019-03-04] MEDS ORDERED: BISACODYL 5 MG TABEC PO SCH (20:00)
[2019-03-05 07:00] LABS: Hematocrit (blood only) 30.7 % (37-47); Hemoglobin 9.9 g/dL (12.0-16.0)
[2019-03-05] MEDS: IBUPROFEN 600 MG TAB PO PRN (07:42)
[2019-03-05] MEDS: PRENATAL VITAMIN 1 TAB PO SCH (07:43)
[2019-03-05] MEDS: DOCUSATE SODIUM 100 MG CAP PO SCH (07:43)
[2019-03-05] MEDS: CETIRIZINE HCL 10 MG TABLET PO SCH (07:43)
[2019-03-05] MEDS: CALCIUM CARBONATE 1250MG TAB PO SCH (07:43)
--- NOTE | 2019-03-05 08:00 | Obstetrical Progress Note ---
Date of Service March 05, 2019 Assessment & Plan (1) Vaginal delivery: PPD#2 doing well. Discharge instructions discussed. DC home today. Followup in office 6w. Subjective Ambulation: ambulating normally Voiding: no voiding problems Diet Tolerance:: regular diet Lochia:: Moderate Review of Systems All systems reviewed & are unremarkable except as noted in HPI & below Physical Exam Constitutional WD/WN, vitals as above no acute distress Respiratory normal respiratory effort Cardiovascular Rate/Rhythm: regular rate and regular rhythm Gastrointestinal (Abdomen) Inspection/Auscultation: abdomen normal to inspection; abdomen not distended Percussion/Palpation: abdomen soft Genitourinary OB Exam Abdomen: + fundal height Fundus: + firm; not tender Results & Data Vital Signs (Past 12 Hours) Vital Signs Temp Pulse Resp BP Pulse Ox 03/04/19 23:32 36.9 C 100 H 18 105/68 95
[2019-03-05] MEDS: OXYCODONE/ACETAMINOPHEN 5mg/325mg TAB PO PRN (08:03)
== END 2019-03-05 10:55 | disposition home or self-care (01) | DRG 807 ==
LOC: OPB 05:36 → 4S1 05:37 → 4S2 03-04 00:49

== ENCOUNTER 2020-05-29 07:47 | Inpatient (IN) ==
[2020-05-29] MEDS ORDERED: OXYTOCIN 30 UNITS/500 ML BAG IV PRN ×3 (07:56→16:01)
[2020-05-29 08:35] LABS: Hematocrit (blood only) 33.3 % (37-47); Hemoglobin 10.8 g/dL (12.0-16.0); Mean Corpuscular Hemoglobin 26.8 pg (25-34); Mean Corpuscular Volume 82.6 fL (80-100); Mean Platelet Volume 11.8 fL (7.4-10.4); Platelet Count 242 K/uL (130-400); RDW Coefficient of Variation 14.1 % (11.5-14.5); RDW Standard Deviation 42.9 fL (36.4-46.3); Red Blood Count 4.03 M/uL (4.2-5.4); White Blood Count 7.91 K/uL (4.8-10.8)
[2020-05-29 08:50] LABS: Mean Corpuscular Hgb Conc 32.4 g/dL (32-36)
--- NOTE | 2020-05-29 09:28 | History & Physical Report ---
Date of Service May 29, 2020 Assessment & Plan (1) Supervision of elderly multigravida, antepartum: (2) Obesity affecting : (3) Diet controlled gestational diabetes mellitus (GDM), antepartum: (4) Post-dates : pt desires this elective induction at postdates. admit, iv, labs. arom and pitocin. see how labor progresses. glucose was 108 this am, plan q2 hr in labor. fhts categ 1. Admission and Anticipated Discharge Date Admission Date: May 29, 2020 History of Present Illness Chief Complaint: planned induction Primary Care Provider: NO PCP 35yo at 40+wks ega presents to L&D with above cc with indication of postdatism. Patient denies complaints. no vb. no rom. +FM. no painful ctx. She had attempted placement of [place] balloon last pm but they were not retained and exam thought to be 2.5cm dilated. Overnight having some ctx. She notices them but not painful. PNC c/b 1. GDM diet controlled, nl ac % 2. AMA 3. Obesity, growth us at 32wks efw 35% 4. Short interval preg PNL RH pos, ri, gbs neg, covid neg on 05/21/20 Allergies Allergy/AdvReac Type Severity Reaction Status Date / Time animal dander Allergy Unknown ALLERGIES Verified 05/28/20 11:33 grass pollen Allergy Verified 05/28/20 11:33 house dust Allergy Verified 05/28/20 11:33 mold Allergy Verified 05/28/20 11:33 No Known Drug Allergies Allergy Verified 05/28/20 11:33 peanut Allergy Gastrointestinal Verified 05/28/20 11:33 Upset sesame seed Allergy Swelling Verified 05/28/20 11:33 of Lip/Tongue/Throat lactose AdvReac Unknown GI SYMPTOMS Verified 05/28/20 11:33 Home Medications Home Medications Medication Instructions Recorded Confirmed Type PNV cmb#95-ferrous fumarate-FA 1 tab PO DAILY 03/03/19 05/29/20 History [] Zyrtec 10 mg PO DAILY 03/03/19 05/29/20 History acetone (urine) test #50 ea 03/29/20 05/28/20 Rx blood sugar diagnostic #150 ea 03/29/20 05/28/20 Rx blood-glucose meter #1 ea 03/29/20 05/28/20 Rx lancets #102 ea 03/29/20 05/28/20 Rx Patient History Medical History (Updated 05/29/20 @ 09:31 by Rachel Mariscal MD, FACOG) Allergic rhinitis Asthma allergy induced Asthma Dyspareunia Encounter for anatomic survey Enlarged thyroid Eosinophilia Fertility testing Food allergy GBS carrier H/O varicella Heel pain Hiatal hernia History of IBS Hx of migraines PSVT (paroxysmal supraventricular tachycardia) Rectocele Ruptured ovarian cyst Seasonal allergies Supervision of normal intrauterine in multigravida Surgical History H/O endoscopy S/P colonoscopy Family History Father Hypertension Osteoporosis Family/Other Heart disease Uncle Prostate cancer maternal Uncle Prostate cancer paternal Brother Depression Denies family history of Ovarian cancer Crohn's disease Myocardial infarction Breast cancer Colorectal cancer Social History Smoking Status: Never smoker Second Hand Exposure: No; Hx Alcohol Use: No Hx Substance Use: No Preferred Language: Occitan Communication Ability: Effective Beliefs That Will Affect Care: None marital status: marital status details: Robert Ny (35) [phone] Current Living Situation: Spouse Current Living Situation Comment: lives with spouse and daughter no pets current occupational status: employed 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 Feels Safe at Home: Yes Safety Concerns: Feels Safe At This Time Assistive Devices: None Review of Systems per hpi Physical Exam Constitutional: WD/WN, vitals as above Respiratory: normal respiratory effort, lungs clear to auscultation Cardiovascular: Rate/Rhythm: regular rate and regular rhythm Gastrointestinal (Abdomen): soft gravid nt Musculoskeletal: no edema nontender calves Neurologic: grossly normal Psychiatric: A+Ox3, euthymic affect Genitourinary: OB Exam Abdomen: + vertex and + estimated weight (7.5#) Manual OB Exam: + cervical dilation (3), + cervical effacement (75%), + station (-3 applied) and + amniotic fluid (arom ) clear OB Exam Monitor Tracing: + external FHT monitor used (140 mod variability, reactive), + external uterine monitor used (q 8), + category I and + normal FHT variability Results & Data ([facility]) Vital Signs (Past 12 Hours) Vital Signs Temp Pulse Resp BP 05/29/20 09:00 18 05/29/20 08:45 20 05/29/20 08:15 20 05/29/20 08:00 97.9 F 18 05/29/20 07:59 106 H 118/84 Coding Level of Care Code None Diagnoses Supervision of elderly multigravida, antepartum O09.529 Obesity affecting O99.210 Diet controlled gestational diabetes mellitus (GDM), antepartum O24.410 Post-dates O48.0
[2020-05-29] MEDS: LACTATED RINGER'S 1,000 ML IV PRN ×2 (09:37→11:45)
[2020-05-29] MEDS ORDERED: BUPIVACAINE 0.25% 30 ML VIAL ONE (11:11)
[2020-05-29] MEDS ORDERED: ePHEDrine sulfate 50 MG/ML AMP ONE (11:11)
[2020-05-29] MEDS ORDERED: SODIUM CHLORIDE 0.9% INJ 10 ML VIAL ONE (11:11)
[2020-05-29] MEDS ORDERED: fentaNYL 2MCG/ML ROPIVACAINE 1.25MG/ML 100 ML BAG EPI ONE (11:12)
[2020-05-29] MEDS ORDERED: fentaNYL citrate 100 MCG/2 ML VIAL ONE (11:12)
[2020-05-29] MEDS ORDERED: NALOXONE HCL 0.4 MG/1 ML VIAL/CARP IV PRN (11:32)
[2020-05-29] MEDS ORDERED: fentaNYL 2MCG/ML ROPIVACAINE 1.25MG/ML 100 ML BAG EPI PRN (11:32)
[2020-05-29] MEDS ORDERED: diphenhydrAMINE 50 MG/ML VIAL IV PRN (11:32)
[2020-05-29] MEDS ORDERED: ePHEDrine sulfate 50 MG/ML AMP IV PRN (11:32)
[2020-05-29] MEDS ORDERED: NALOXONE HCL 1 MG in SODIUM CHLORIDE 0.9% 1000ML 1,000 ML IV PRN (11:32)
[2020-05-29] MEDS ORDERED: ONDANSETRON INJ 2 MG/ML 2 ML VIAL IV PRN (11:32)
[2020-05-29] MEDS ORDERED: PROMETHAZINE HCL 25 MG in SODIUM CHLORIDE 0.9% 50 ML IV PRN (11:32)
--- NOTE | 2020-05-29 11:34 | Anesthesiology Consultation ---
Date of Service May 29, 2020 Assessment & Plan ASA ASA2 Proposed Anesthesia Anesthesia Type: Labor Epidural Risk / Benefits Reviewed With: PT / POA / Parent / Guardian, Accepts Plan and Informed Consent Obtained History Height/Weight Height: 5 ft 3 in Weight: 98.883 kg Allergies Allergy/AdvReac Type Severity Reaction Status Date / Time animal dander Allergy Unknown ALLERGIES Verified 05/28/20 11:33 grass pollen Allergy Verified 05/28/20 11:33 house dust Allergy Verified 05/28/20 11:33 mold Allergy Verified 05/28/20 11:33 No Known Drug Allergies Allergy Verified 05/28/20 11:33 peanut Allergy Gastrointestinal Verified 05/28/20 11:33 Upset sesame seed Allergy Swelling Verified 05/28/20 11:33 of Lip/Tongue/Throat lactose AdvReac Unknown GI SYMPTOMS Verified 05/28/20 11:33 Medications Home Medications Medication Instructions Recorded Confirmed Last Taken PNV cmb#95-ferrous fumarate-FA 1 tab PO DAILY 03/03/19 05/29/20 05/29/20 [] Zyrtec 10 mg PO DAILY 03/03/19 05/29/20 05/28/20 08:00 acetone (urine) test #50 ea 03/29/20 05/28/20 Unknown blood sugar diagnostic #150 ea 03/29/20 05/28/20 Unknown blood-glucose meter #1 ea 03/29/20 05/28/20 Unknown lancets #102 ea 03/29/20 05/28/20 Unknown Active Medications Generic Name Dose Route Start Last Admin Trade Name Freq PRN Reason Stop Dose Admin Lactated Ringer's 1,000 mls @ 125 mls/hr 05/29/20 07:56 05/29/20 11:45 Lr IV 05/31/20 07:55 999 mls/hr .Q8H PRN Administration L&D Protocol Protocol Oxytocin 30 units in 500 mls @ 5 mls/hr 05/29/20 07:58 05/29/20 11:00 Pitocin IV 05/31/20 07:57 0.3 units/hr .Q24H PRN 5 mls/hr Labor Induction/Augmentation Titration Protocol 0.3 UNITS/HR Ropivacaine 100 ml 05/29/20 11:32 05/29/20 11:43 Fentanyl 2mcg/Ml Ropiv 1.25mg/Ml 100 Ml Bag EPI 05/30/20 11:31 100 ml PRN PRN Administration Pain R/T Labor Protocol Past Medical History Medical History Allergic rhinitis Asthma allergy induced Asthma Dyspareunia Encounter for anatomic survey Enlarged thyroid Eosinophilia Fertility testing Food allergy GBS carrier H/O varicella Heel pain Hiatal hernia History of IBS Hx of migraines PSVT (paroxysmal supraventricular tachycardia) Rectocele Ruptured ovarian cyst Seasonal allergies Supervision of normal intrauterine in multigravida Exercise / Class Metabolic Activity II 4-5 Yardwork/Stairs/Walk up hill Past Family History Family History Father Hypertension Osteoporosis Family/Other Heart disease Uncle Prostate cancer maternal Uncle Prostate cancer paternal Brother Depression Denies family history of Ovarian cancer Crohn's disease Myocardial infarction Breast cancer Colorectal cancer Past Surgical History Surgical History H/O endoscopy S/P colonoscopy Past Anesthesia History No Hx of Anesthesia Complications and No Family Hx of Anesthesia Complications History of PONV No Hx of PONV and No Hx of Motion Sickness Social History Smoking Status: Never smoker Hx Alcohol Use: No Hx Substance Use: No substance use type: does not use Review of Systems denies fever/cough/ colds/ chest pain/ SOB/ EDWIN denies EDWIN Physical Exam Vital Signs Last Vital Signs Temp 36.6 C 05/29/20 08:00 Pulse 85 05/29/20 11:59 Resp 18 05/29/20 11:00 BP 116/67 05/29/20 11:59 Pulse Ox 99 05/29/20 11:55 ENMT Mouth: no TMJ abnormality and no dentition abnormality Thyromental Distance: > or= 3.5 Finger Breadths Mallampati Class: II Neck neck extension not limited Respiratory normal respiratory effort; no respiratory distress Auscultation: lungs clear to auscultation bilaterally Cardiovascular Rate/Rhythm: regular rate and regular rhythm Neurologic moves all extremities Psychiatric Orientation: alert and oriented x 3 Testing Laboratory Results 05/29/20 08:05 05/29/20 08:49 POC Glucose 108 H
--- NOTE | 2020-05-29 14:03 | Labor Progress Brief Note ---
Date of Service May 29, 2020 Subjective Reason For Note: Routine Evaluation now comfortable with epidural clear fluid leaking Assessment & Plan (1) Post-dates : (2) Diet controlled gestational diabetes mellitus (GDM), antepartum: (3) Supervision of elderly multigravida, antepartum: (4) Obesity affecting : some cx change. fhts categ 1. Admission and Anticipated Discharge Date Admission Date: May 29, 2020 Physical Exam Constitutional: WD/WN, vitals as above Neurologic: grossly normal Psychiatric: A+Ox3, euthymic affect Genitourinary: Manual OB Exam: + cervical dilation (3-4), + cervical effacement 80% and + station -2 OB Exam Monitor Tracing: + external FHT monitor used (135 mod variability reactive), + external uterine monitor used (q2-4), + category I, + normal FHT variability and + early decelerations present Results & Data ([facility]) Vital Signs (Past 12 Hours) Vital Signs Temp Pulse Resp BP Pulse Ox 05/29/20 13:55 82 98 05/29/20 13:50 87 108/62 98 05/29/20 13:45 92 H 99 05/29/20 13:40 84 98 05/29/20 13:35 69 115/74 99 05/29/20 13:30 91 H 18 97 05/29/20 13:29 90 97/67 L 05/29/20 13:25 83 98 05/29/20 13:23 76 105/59 L 05/29/20 13:20 81 97 05/29/20 13:19 70 104/64 05/29/20 13:15 83 99 05/29/20 13:14 74 107/63 05/29/20 13:10 75 96 05/29/20 13:08 77 101/62 05/29/20 13:05 82 97 05/29/20 13:03 71 98/61 L 05/29/20 13:00 76 16 97 05/29/20 12:59 76 106/66 05/29/20 12:55 87 98 05/29/20 12:53 68 110/67 05/29/20 12:50 70 108/65 99 05/29/20 12:45 82 98 05/29/20 12:43 80 112/72 05/29/20 12:40 77 98 05/29/20 12:35 82 98 10/21/20 12:34 85 117/73 05/29/20 12:30 91 H 18 98 05/29/20 12:28 86 113/68 05/29/20 12:25 78 97 05/29/20 12:24 85 126/66 05/29/20 12:20 82 97 05/29/20 12:19 85 117/75 05/29/20 12:15 84 98 05/29/20 12:14 84 121/72 05/29/20 12:10 80 98 05/29/20 12:07 81 115/75 05/29/20 12:05 87 112/74 98 05/29/20 12:03 84 114/75 05/29/20 12:01 84 122/76 05/29/20 12:00 98.1 F 91 H 18 99 05/29/20 11:59 85 116/67 05/29/20 11:57 83 116/73 05/29/20 11:56 87 118/73 05/29/20 11:55 81 116/76 99 05/29/20 11:53 87 132/79 05/29/20 11:51 93 H 129/87 05/29/20 11:50 90 99 05/29/20 11:49 89 129/84 05/29/20 11:45 85 100 05/29/20 11:40 91 H 99 05/29/20 11:35 82 100 05/29/20 11:31 75 122/77 05/29/20 11:30 80 20 100 05/29/20 11:00 18 05/29/20 10:33 78 116/83 05/29/20 10:30 20 05/29/20 10:00 98.1 F 18 05/29/20 09:39 80 121/80 05/29/20 09:30 18 05/29/20 09:00 18 05/29/20 08:45 20 05/29/20 08:15 20 05/29/20 08:00 97.9 F 18 05/29/20 07:59 106 H 118/84 Coding Level of Care Code None Diagnoses Post-dates O48.0 Diet controlled gestational diabetes mellitus (GDM), antepartum O24.410 Supervision of elderly multigravida, antepartum O09.529 Obesity affecting O99.210
--- NOTE | 2020-05-29 15:27 | Delivery Summary ---
Vaginal Delivery Summary Date of Service May 29, 2020 The patient dilated to complete and pushed to deliver a viable female Apg ars 8 and 9 via over 2nd degree perineal laceration. Mouth and nose bulb suctioned at perineum. Shoulders and body delivered with ease. Infant was vigorous and crying at . Cord clamped at 30 seconds of life and infant to maternal abdomen where the cord was then doubly clamped and cut. Placenta delivered spontaneously and intact, three-vessel cord. Hemostasis achieved with dilute pitocin and uterine massage and drainage of the bladder for approximately 300 cc under sterile conditions. Laceration repaired in routine fashion with 3- 0 vicryl. Cervix and sulci intact. EBL 300 cc. Mother and baby stable recovery. [facility] Vaginal Delivery Charge Vaginal Delivery Codes: 85574 global code for the antepartum, delivery, and p ost-
[2020-05-29] MEDS ORDERED: BENZOCAINE 20% AER SPR 82.5 GM CAN EXT PRN (16:01)
[2020-05-29] MEDS ORDERED: oxyCODONE/ACETAMINOPHEN 5mg/325mg TAB PO PRN (16:01)
[2020-05-29] MEDS ORDERED: HYDROCORTISONE ACETATE 25 MG SUPP PR PRN (16:01)
[2020-05-29] MEDS ORDERED: DIPHTHERIA/TETANUS/PERTUSSIS 0.5 ML SYR/VIAL IM ONE (16:01)
[2020-05-29] MEDS ORDERED: ACETAMINOPHEN 325 MG TAB PO PRN (16:01)
[2020-05-29] MEDS ORDERED: SUPERCREAM 0.870% 15 GM JAR EXT PRN (16:01)
--- NOTE | 2020-05-29 16:08 | Anesthesia Procedure Note ---
Date of Service May 29, 2020 Anesthesia Post Epidural Note Vital Signs Vital Signs: Temp Pulse Resp BP Pulse Ox 36.7 C 96 H 18 114/73 98 05/29/20 14:48 05/29/20 16:05 05/29/20 15:35 05/29/20 16:05 05/29/20 15:15 Pain Intensity Abdomen: Pain Intensity: 7 Notes Mental Status: alert / awake / arousable and participated in evaluation Patient Amnestic to Procedure: Yes Nausea / Vomiting: adequately controlled Pain: adequately controlled Airway Patency, RR, SpO2: stable & adequate BP & HR: stable & adequate Hydration State: stable & adequate Anesthetic Complications: no major complications apparent and Pt Satisfied with anesthetic care
[2020-05-29] MEDS: OXYTOCIN 20 UNITS in LACTATED RINGER'S 1,000 ML IV SCH (16:35)
[2020-05-29] MEDS: IBUPROFEN 600 MG TAB PO PRN (17:10)
[2020-05-29] MEDS: DOCUSATE SODIUM 100 MG CAP PO SCH (20:57)
[2020-05-30] MEDS: IBUPROFEN 600 MG TAB PO PRN ×4 (00:54→23:09)
[2020-05-30] MEDS: OXYTOCIN 20 UNITS in LACTATED RINGER'S 1,000 ML IV SCH (01:59)
--- NOTE | 2020-05-30 07:20 | Obstetrical Progress Note ---
Date of Service <Carter Brown MD - Last Filed: 05/30/20 08:07> May 30, 2020 Assessment & Plan <Carter Brown MD - Last Filed: 05/30/20 08:07> (1) : - PNL: Rh pos, RI, GBS neg, COVID neg - Feels well today. Eating well, voiding well, ambulating well - Pain well controlled with ibuprofen 600mg Q4H PRN - Routine care -- OOB, ambulation, diet progression as tolerated - After discharge will have 6 week follow-up with Dr. Davey Webb #:: 1 Subjective <Carter Brown MD - Last Filed: 05/30/20 08:07> Sybil is a 35 y/o female who is PPD #1 following at 40 3/7 weeks. She reports feeling well overall this morning. Light abdominal cramping and 3/10 pain well managed on analgesics. Voiding well. Tolerating meals overnight without difficulty. Patient has been able to ambulate some Has persistent lochia with some improvement this morning. Currently . Review of Systems Denies fever or chills. Denies shortness of breath or cough. Denies chest pain. Denies breast pain. Denies dysuria. Denies leg pain or leg swelling. Denies headache or changes in vision. Physical Exam <Carter Brown MD - Last Filed: 05/30/20 08:07> General: Alert, oriented. No acute distress. Cardiac: Regular rate and rhythm. No murmurs. Respiratory: Clear to auscultation bilaterally a/p, no wheezes/rales/rhonchi. No increased work of breathing. Symmetrical chest rise. No respiratory distress. Abdomen: Soft, nontender, nondistended. Bowel sounds present. Uterus: Uterine fundus firm, palpable 1 cm below umbilicus. Lower Extremities: No lower extremity edema or swelling. No deep calf pain. Yue's negative bilaterally. Results & Data ([facility]) <Carter Brown MD - Last Filed: 05/30/20 08:07> Vital Signs (Past 12 Hours) Vital Signs Temp Pulse Resp BP 05/30/20 04:25 37 C 88 18 97/64 L 05/30/20 00:45 36.9 C 102 H 18 97/63 L 05/29/20 20:15 37 C 80 18 107/71 <Rachel Mariscal MD, FACOG - Last Filed: 05/30/20 08:12> Co-Signing Physician Notes Resident Physician Supervision Note: I was present with Dr. Estrella during the history and exam. I discussed the case with the resident and agree with the findings and plan as documented in the note. Any exceptions or clarifications are listed here: doing well. routine pp care. , denies complaints. ff 2down, nt. Documented By: Rachel Mariscal MD, FACOG Resident Activity Tracking <Carter Brown MD - Last Filed: 05/30/20 08:07> Resident Involvement: Resident Care Provided Care Provided: OB Delivery
[2020-05-30] MEDS: DOCUSATE SODIUM 100 MG CAP PO SCH ×2 (08:37→19:27)
--- NOTE | 2020-05-31 05:51 | Obstetrical Progress Note ---
Date of Service <Carter Brown MD - Last Filed: 05/31/20 07:40> May 31, 2020 Assessment & Plan <Carter Brown MD - Last Filed: 05/31/20 07:40> (1) : - PNL: Rh [pos], RI, GBS [neg], COVID [neg] - Feels well today. Eating well, voiding well, ambulating well - Pain well controlled with ibuprofen 600mg Q4H PRN - Routine care -- OOB, ambulation, diet progression as tolerated - After discharge will have 6 week follow-up with Dr. Mariscal - Plan to discharge home later today Day #:: 2 Subjective <Carter Brown MD - Last Filed: 05/31/20 07:40> Sybil is a 35 y/o female who is PPD #2 following at 40+ weeks. She reports feeling well overall this morning. Light abdominal cramping and 2/10 pain well managed on analgesics. Voiding well. Tolerating meals overnight without difficulty. Patient has been able to ambulate some. Has persistent lochia with some improvement this morning. Currently . Review of Systems Denies fever or chills. Denies shortness of breath or cough. Denies chest pain. Denies breast pain. Denies dysuria. Denies leg pain or leg swelling. Denies headache or changes in vision. Physical Exam <Carter Brown MD - Last Filed: 05/31/20 07:40> General: Alert, oriented. No acute distress. Cardiac: Regular rate and rhythm. No murmurs. Respiratory: Clear to auscultation bilaterally a/p, no wheezes/rales/rhonchi. No increased work of breathing. Symmetrical chest rise. No respiratory distress. Abdomen: Soft, nontender, nondistended. Bowel sounds present. Uterus: Uterine fundus firm, palpable 2 cm below umbilicus. Lower Extremities: No lower extremity edema or swelling. No deep calf pain. Yue's negative bilaterally. Results & Data ([facility]) <Carter Brown MD - Last Filed: 05/31/20 07:40> Vital Signs (Past 12 Hours) Vital Signs Temp Pulse Resp BP Pulse Ox 05/30/20 23:00 36.8 C 90 18 125/89 96 05/30/20 19:20 36.7 C 98 H 18 119/73 98 <Ernestine Cervantes MD, FACOG - Last Filed: 05/31/20 07:53> Co-Signing Physician Notes Resident Physician Supervision Note: I was present with Dr. Estrella during the history and exam. I discussed the case with the resident and agree with the findings and plan as documented in the note. Any exceptions or clarifications are listed here: [None] Documented By: Ernestine Cervantes MD, FACOG Resident Activity Tracking <Carter Brown MD - Last Filed: 05/31/20 07:40> Resident Involvement: Resident Care Provided Care Provided: OB Delivery
[2020-05-31] MEDS: IBUPROFEN 600 MG TAB PO PRN (07:38)
[2020-05-31] MEDS: DOCUSATE SODIUM 100 MG CAP PO SCH (07:38)
== END 2020-05-31 12:03 | disposition home or self-care (01) | DRG 807 ==
LOC: 4S1 07:47 → 4S2 18:10